=== PATIENT | female | born 1980 | race Two or more races ===

== ENCOUNTER 2017-10-13 03:48 | Outpatient (CLI) | payer OTHER ==
[~2017-10-13 03:48] MED LIST: HYDROXYZINE PAM50 MG PO; NIFEDIPINE ER30 MG PO; PRENATAL TABLE1 EAC1 PO; ULTRACET PO
== END 2017-10-13 18:53 | disposition home or self-care (01) ==
LOC: OBS/DEL 03:48
DX: O60.03 Preterm labor without delivery, third trimester (principal)

== ENCOUNTER → 2022-07-20 | Emergency (ER) | payer OTHER ==
[~2022-07-20] VITALS: Ht 162.6 cm; Wt 77.1 kg
[~2022-07-20] MED LIST changes: +IBUPROFEN800 MG PO
== END | disposition left against medical advice (07) ==
LOC: ER 22:33 → EMR PED 22:36
DX: Z53.21 Procedure and treatment not carried out due to patient leaving prior to being seen by health care provider (principal)